=== PATIENT | male | born 1980 | race Caucasian/White ===

== ENCOUNTER 2019-10-29 10:13 | Emergency (ER) | payer SELFPAY ==
[2019-10-29 10:31] VITALS: BP 132/89; PULSE 93; RESP 15; TEMP 37.4; O2SAT 98; BMI 29.6
--- NOTE | 2019-10-29 10:42 | ED_ITS ---
HPI - Chest Pain General: Chief Complaint: Chest Pain Stated Complaint: fever, chest pain Time Seen by Provider: 10/29/19 10:38 History of Present Illness: HPI narrative: patient is a 38-year-old white male who states he started having body aches, cough, and hiccups yesterday. He states he felt like he had a fever. He has not taken anything for his fever prior to arrival. He states that the hiccups will Randomly Start and Then Stop. He denies any vomiting or diarrhea. Associated symptoms: Deny abdominal pain, dyspnea, fever(s), nausea, palpitations or vomiting Review of Systems Const: Denies: fever or chills Eyes: Denies: blurry vision ENMT: Denies: throat pain Card: Reports: chest pain (pain with hiccups); Denies: palpitations Resp: Reports: non-productive cough; Denies: shortness of breath or productive cough GI: Denies: abdominal pain, nausea or vomiting Musc: Denies: neck pain or back pain Skin/Breast: Denies: rash Neuro: Denies: headache or numbness in extremities PFSH ED PFSH: Statuses (acute, chronic, etc) shown below reflect problem list status as previously entered and may not be historically accurate Social History Smoking and tobacco status: current every day smoker Physical Exam Const: COMMON NORMALS: no apparent distress and oriented x3 GENERAL APPEARANCE: well hydrated HENMT: COMMON NORMALS: normocephalic HEAD & SCALP: normocephalic Eye: COMMON NORMALS: PERRL, EOMs intact bilaterally and conjunctivae normal CONJUNCTIVA: Yes conjunctivae normal PUPIL: Yes PERRL Neck/C-Spine: COMMON NORMALS: full ROM and no meningeal signs Chest: COMMONS NORMALS: inspection of chest normal and palpation of chest normal Resp: COMMON NORMALS: normal respiratory effort and no retractions Cardio: COMMON NORMALS: regular rate and regular rhythm RATE: regular rate RHYTHM: regular rhythm GI: COMMON NORMALS: normal to inspection, nondistended, normoactive bowel sounds and soft to palpation PALPATION: Yes soft Back/Pelvis: COMMON NORMALS: thoracic and lumbar spine normal to inspection Extremity: COMMON NORMALS: normal to inspection Neuro: COMMON NORMALS: oriented x3, moves all extremities and gait normal MENINGEAL SIGNS: Yes no meningeal signs Course ED course: Patient mildly hypokalemic, will give PO here in the ER. Labs unremarkable. Vital Signs: Vital signs: Vital Signs Temperature 99.3 F 10/29/19 10:31 Pulse Rate 93 10/29/19 10:31 Respiratory Rate 15 10/29/19 10:31 Blood Pressure 132/89 10/29/19 10:31 Pulse Oximetry 97 10/29/19 10:55 MDM - Chest Pain Lab Data: Labs: Lab Results 10/29/19 10/29/19 10/29/19 Range/Units 10:50 10:50 10:50 WBC 8.5 (4.0-10.0) 10^3/ uL RBC 5.04 (4.1-5.3) 10^6/u L Hgb 16.0 (11.7-16.6) g/dL Hct 44.6 (42.0-52.0) % MCV 88.5 (80-94) fL MCH 31.7 (28.0-34.0) pg MCHC 35.9 (30.0-36.0) g/dL RDW 12.7 (12.1-15.1) % Plt Count 132 (130-400) 10^3/c mm MPV 10.3 (7.4-10.4) fL Neut % (Auto) 72.1 % Lymph % (Auto) 15.2 % [facility] % (Auto) 12.1 % Eos % (Auto) 0.1 % Baso % (Auto) 0.1 % Neut # (Auto) 6.1 (1.8-7.7) 10^3/u L Lymph # (Auto) 1.3 (0.8-4.8) 10^3/u L [facility] # (Auto) 1.0 H (0.2-0.9) 10^3/u L Eos # (Auto) 0.0 (0.0-0.8) 10^3/u L Baso # (Auto) 0.0 (0.0-0.1) 10^3/u L Nucleated RBC % (a uto) 0 % Nucleated RBCs # 0.0 /100WBC Sodium 132 L (136-145) mmol/L Potassium 3.3 L (3.5-5.1) mmol/L Chloride 96 L (98-107) mmol/L Carbon Dioxide 22 (22-29) mmol/L Anion Gap 17.3 (5-19) BUN 10 (6-20) mg/dL Creatinine 1.1 (0.7-1.2) mg/dL GFR Calculation 75.3 L (90-130) mL/min Glucose 123 H (74-109) mg/dL Calcium 8.6 (8.5-10.5) mg/dL Total Bilirubin 1.2 (0.15-1.2) mg/dL AST 19 (0-40) U/L ALT 16 (0-41) U/L Alkaline Phosphata se 68 (40-130) IU/L Troponin T Baselin e 11 (0-15) ng/mL Total Protein 7.6 (6.6-8.7) g/dL Albumin 4.5 (3.5-5.2) g/dL Globulin 3.1 (1.3-4.6) g/dL Influenza Type A A g (Negative) POC Influenza B Ag (Negative) Group A Strep Rapi d (Negative) 10/29/19 10/29/19 Range/Units 10:55 10:55 WBC (4.0-10.0) 10^3/ uL RBC (4.1-5.3) 10^6/u L Hgb (11.7-16.6) g/dL Hct (42.0-52.0) % MCV (80-94) fL MCH (28.0-34.0) pg MCHC (30.0-36.0) g/dL RDW (12.1-15.1) % Plt Count (130-400) 10^3/c mm MPV (7.4-10.4) fL Neut % (Auto) % Lymph % (Auto) % [facility] % (Auto) % Eos % (Auto) % Baso % (Auto) % Neut # (Auto) (1.8-7.7) 10^3/u L Lymph # (Auto) (0.8-4.8) 10^3/u L [facility] [place] # (Auto) (0.2-0.9) 10^3/u L Eos # (Auto) (0.0-0.8) 10^3/u L Baso # (Auto) (0.0-0.1) 10^3/u L Nucleated RBC % (a uto) % Nucleated RBCs # /100WBC Sodium (136-145) mmol/L Potassium (3.5-5.1) mmol/L Chloride (98-107) mmol/L Carbon Dioxide (22-29) mmol/L Anion Gap (5-19) BUN (6-20) mg/dL Creatinine (0.7-1.2) mg/dL GFR Calculation (90-130) mL/min Glucose (74-109) mg/dL Calcium (8.5-10.5) mg/dL Total Bilirubin (0.15-1.2) mg/dL AST (0-40) U/L ALT (0-41) U/L Alkaline Phosphata se (40-130) IU/L Troponin T Baselin e (0-15) ng/mL Total Protein (6.6-8.7) g/dL Albumin (3.5-5.2) g/dL Globulin (1.3-4.6) g/dL Influenza Type A A g Negative (Negative) POC Influenza B Ag Negative (Negative) Group A Strep Rapi d Negative (Negative) Imaging Data^: CXR: My impression: NOthing cture EKG Data^: EKG 1: Attestation: I personally reviewed and interpreted this EKG as follows: EKG interpretation date: 10/29/19 Interpretation: ventricular rate of 93 bpm. Normal sinus rhythm. No ST changes. QTc 387. Discharge Plan Discharge Patient Disposition: Home, Self-Care Clinical Impression: Bronchitis, Hypokalemia Condition: Stable Prescriptions: New albuterol sulfate 90 mcg/actuation aerosol powdr breath activated 2 inh INHALATION Q4H PRN (Reason: shortness of breath or wheezing) Qty: 1 RF: 0 prednisone 10 mg tablet 10 mg PO DAILY Qty: 7 RF: 0 Discharge Diet: Usual diet Discharge Activity: Resume usual activity Patient Instructions: Hiccups (ED), Acute Bronchitis (ED) Activity Restrictions/Additional Instructions: drink plenty of fluids. Began taking steroid as directed. Use albuterol inhaler, 2 puffs every 4 hours for coughing or wheezing. Highly recommend to quit smoking. Follow up with your family doctor in 3-5 days. Coding Level of Care Code ED Substitute Bus Driver for Phil Sandoval
--- NOTE | 2019-10-29 10:43 | XRR_ITS ---
PROCEDURE INFORMATION: Exam: XR Chest, 1 View Exam date and time: 10/29/2019 11:06 AM Age: 38 years old Clinical indication: Cough; hiccups for 24 hours TECHNIQUE: Imaging protocol: XR of the chest Views: 1 view. COMPARISON: No relevant prior studies available. FINDINGS: Lungs: No focal peripheral lung consolidation, air bronchogram formation, or silhouette sign. Pleural space: No pleural effusion or pneumothorax. Heart/Mediastinum: The cardiac silhouette is not enlarged. The mediastinal contours are normal. Bones/joints: No acute osseous abnormality. XR/XR chest 1V portable 20700 IMPRESSION: No pneumonia.
--- NOTE | 2019-10-29 10:43 | ECG_ITS ---
Measurements Intervals [place] Rate: 93 P: 61 [place]: 118 QRS: -15 QRSD: 101 T: 49 QT: 336 QTc: 419 SINUS RHYTHM WITH SHORT [place] INTERVAL No previous ECG available for comparison Electronically Signed On 10-29-2019 17:52:00 PRODUCTION SUPPORT SPECIALIST by Piyush Rollins M.D. [email or web address]
[2019-10-29 10:55] VITALS: O2SAT 97
[2019-10-29 11:00] LABS: Basophils % 0.1 %; Eosinophils % 0.1 %; Hematocrit 44.6 % (42.0-52.0); Lymphocytes # 1.3 10^3/uL (0.8-4.8); Lymphocytes % 15.2 %; Mean Corpuscular HGB Conc 35.9 g/dL (30.0-36.0); Mean Corpuscular Hemoglobin 31.7 pg (28.0-34.0); Mean Corpuscular Volume 88.5 fL (80-94); Mean Platelet Volume 10.3 fL (7.4-10.4); Monocytes % 12.1 %; Neutrophils # 6.1 10^3/uL (1.8-7.7); Neutrophils % 72.1 %; Nucleated Red Blood Cells % 0 %; Platelet Count 132 10^3/cmm (130-400); Red Blood Count 5.04 10^6/uL (4.1-5.3); Red Cell Distribution Width 12.7 % (12.1-15.1); White Blood Count 8.5 10^3/uL (4.0-10.0)
[2019-10-29 11:14] LABS: Alanine Aminotransferase 16 U/L (0-41); Albumin Level 4.5 g/dL (3.5-5.2); Alkaline Phosphatase 68 IU/L (40-130); Anion Gap 17.3 (5-19); Aspartate Amino Transferase 19 U/L (0-40); Blood Urea Nitrogen 10 mg/dL (6-20); Calcium 8.6 mg/dL (8.5-10.5); Carbon Dioxide 22 mmol/L (22-29); Chloride 96 mmol/L (98-107); Globulin 3.1 g/dL (1.3-4.6); Glomerular Filtration Rate 75.3 mL/min (90-130); Glucose 123 mg/dL (74-109); Potassium 3.3 mmol/L (3.5-5.1); Sodium 132 mmol/L (136-145); Total Bilirubin 1.2 mg/dL (0.15-1.2); Total Protein 7.6 g/dL (6.6-8.7)
[2019-10-29 11:15] LABS: Troponin(5th) Baseline 11 ng/mL (0-15)
[2019-10-29 11:24] LABS: Rapid Strep A Test Negative (Negative)
[2019-10-29 11:28] LABS: Influenza A by IFA Negative (Negative); Influenza B by IFA Negative (Negative)
[2019-10-29] MEDS: potassium bicarb 25 mEq Tablet PO (11:44)
[2019-10-29 12:30] VITALS: BP 117/76; PULSE 75; RESP 20; O2SAT 98
== END 2019-10-29 12:31 | disposition home or self-care (01) ==
PROVIDERS: Emergency Provider Physician Assistant
DX: J40 Bronchitis, not specified as acute or chronic (principal); E87.6 Hypokalemia; F17.210 Nicotine dependence, cigarettes, uncomplicated
CPT/HCPCS: 36415; 71045; 80053; 84484; 85025; 87081; 87804; 87880; 93005; 99283